=== PATIENT | male | born 1950 | race Caucasian/White ===

== ENCOUNTER 2019-04-03 09:16 | Outpatient (REF) | payer OTHER, SELFPAY ==
[2019-04-03 20:49] LABS: Anion Gap 9.5 mmol/L (3-11); BUN 17 mg/dL (7-18); CO2 26.5 mmol/L (21.0-32.0); CREATININE 0.91 mg/dL (0.70-1.30); Calcium 9.2 mg/dL (8.5-10.1); Chloride 105 mmol/L (98-107); Cholesterol 258 mg/dL (50-200); Glucose 105 mg/dL (70-100); HDL Cholesterol 48 mg/dL (40-60); LDL CHOLESTEROL 191 mg/dL (<100); Potassium 4.2 mmol/L (3.5-5.1); Sodium 141 mmol/L (136-145); Triglyceride 118 mg/dL (30-150)
== END 2019-04-03 09:36 ==
LOC: NCHCN 09:16
PROVIDERS: Visit Provider Internal Medicine
DX: Z00.00 Encounter for general adult medical examination without abnormal findings (principal); E78.5 Hyperlipidemia, unspecified; Z13.1 Encounter for screening for diabetes mellitus
CPT/HCPCS: 80048; 80061; 83721

== ENCOUNTER 2019-08-07 16:48 | Outpatient (REF) | payer OTHER, SELFPAY ==
[2019-08-07 22:16] LABS: Calculated LDL 176 mg/dL; Cholesterol 238 mg/dL (50-200); HDL Cholesterol 44 mg/dL (40-60); Triglyceride 94 mg/dL (30-150)
== END 2019-08-07 17:08 ==
LOC: NCHCN 16:48
PROVIDERS: Visit Provider Internal Medicine
DX: E78.5 Hyperlipidemia, unspecified (principal)
CPT/HCPCS: 80061

== ENCOUNTER 2020-07-12 15:00 | Outpatient (REF) | payer OTHER, SELFPAY ==
[2020-07-12 22:18] LABS: Anion Gap 9.4 mmol/L (3-11); BUN 18 mg/dL (7-18); CO2 27.6 mmol/L (21.0-32.0); CREATININE 0.91 mg/dL (0.70-1.30); Calcium 8.6 mg/dL (8.5-10.1); Calculated LDL 177 mg/dL (<100); Chloride 104 mmol/L (98-107); Cholesterol 243 mg/dL (<200); Glucose 91 mg/dL (74-106); HDL Cholesterol 44 mg/dL (40-60); Potassium 4.1 mmol/L (3.5-5.1); Sodium 141 mmol/L (136-145); Triglyceride 111 mg/dL (<150)
== END 2020-07-12 15:20 ==
LOC: NCHCN 15:00
PROVIDERS: Visit Provider Internal Medicine
DX: Z00.00 Encounter for general adult medical examination without abnormal findings (principal); E78.5 Hyperlipidemia, unspecified
CPT/HCPCS: 80048; 80061

== ENCOUNTER 2021-01-24 12:10 | Outpatient (REF) | payer OTHER, SELFPAY ==
[2021-01-24 13:42] LABS: Calculated LDL 155 mg/dL (<100); Cholesterol 230 mg/dL (<200); HDL Cholesterol 46 mg/dL (40-60); Triglyceride 146 mg/dL (<150)
== END 2021-01-24 12:11 | disposition home or self-care (01) ==
LOC: NCHCN 12:10
PROVIDERS: Visit Provider Internal Medicine
DX: E78.5 Hyperlipidemia, unspecified (principal)
CPT/HCPCS: 80061

== ENCOUNTER 2021-07-05 10:27 | Outpatient (REF) | payer OTHER, SELFPAY ==
[2021-07-05 14:37] LABS: ALT 41 U/L (16-63); AST 31 U/L (15-37); Albumin 3.9 g/dL (3.4-5.0); Alkaline Phosphatase 73 U/L (46-116); Anion Gap 10.5 mmol/L (3-11); BUN 18 mg/dL (7-18); Bilirubin, Total 0.6 mg/dL (0.2-1.0); CO2 25.5 mmol/L (21.0-32.0); CREATININE 0.9 mg/dL (0.70-1.30); Calcium 8.7 mg/dL (8.5-10.1); Calculated LDL 170 mg/dL (<100); Chloride 106 mmol/L (98-107); Cholesterol 232 mg/dL (<200); Glucose 93 mg/dL (74-106); HDL Cholesterol 45 mg/dL (40-60); Potassium 4.3 mmol/L (3.5-5.1); Sodium 142 mmol/L (136-145); Total Protein 6.6 g/dL (6.4-8.2); Triglyceride 86 mg/dL (<150)
== END 2021-07-05 10:28 | disposition home or self-care (01) ==
LOC: NCHCN 10:27
PROVIDERS: Visit Provider Internal Medicine
DX: E78.5 Hyperlipidemia, unspecified (principal); I10 Essential (primary) hypertension; Z12.5 Encounter for screening for malignant neoplasm of prostate
CPT/HCPCS: 80053; 80061; 84153

== ENCOUNTER 2022-01-15 11:03 | Outpatient (REF) | payer OTHER, SELFPAY ==
[2022-01-15 19:14] LABS: Calculated LDL 157 mg/dL (<100); Cholesterol 230 mg/dL (<200); HDL Cholesterol 51 mg/dL (40-60); Triglyceride 110 mg/dL (<150)
== END 2022-01-15 11:04 | disposition home or self-care (01) ==
LOC: NCHCN 11:03
PROVIDERS: Visit Provider Internal Medicine
DX: E78.5 Hyperlipidemia, unspecified (principal)
CPT/HCPCS: 80061

== ENCOUNTER 2023-03-06 16:22 | Outpatient (REF) | payer OTHER, SELFPAY ==
[2023-03-06 15:23] LABS: BUN 13 mg/dL (7-18); CREATININE 1.1 mg/dL (0.70-1.30); Calcium 8.8 mg/dL (8.5-10.1); Calculated LDL 163 mg/dL (<100); Chloride 107 mmol/L (98-107); Cholesterol 231 mg/dL (<200); Estimated GFR 71.32 (mL/min/1.73m2); Glucose 104 mg/dL (74-106); HDL Cholesterol 48 mg/dL (40-60); Potassium 4.3 mmol/L (3.5-5.1); Sodium 142 mmol/L (136-145); Triglyceride 103 mg/dL (<150)
== END 2023-03-06 16:23 | disposition home or self-care (01) ==
LOC: NCHCN 16:22
PROVIDERS: Visit Provider Internal Medicine
DX: Z00.00 Encounter for general adult medical examination without abnormal findings (principal); I10 Essential (primary) hypertension; E78.5 Hyperlipidemia, unspecified
CPT/HCPCS: 80048; 80061

== ENCOUNTER 2023-09-02 14:45 | Outpatient (REF) | payer OTHER, SELFPAY ==
[2023-09-02 16:57] LABS: Calculated LDL 173 mg/dL (<100); Cholesterol 238 mg/dL (<200); HDL Cholesterol 47 mg/dL (40-60); Triglyceride 92 mg/dL (<150)
== END 2023-09-02 14:46 | disposition home or self-care (01) ==
LOC: NCHCN 14:45
PROVIDERS: Visit Provider Internal Medicine
DX: E78.5 Hyperlipidemia, unspecified (principal)
CPT/HCPCS: 80061

== ENCOUNTER 2024-03-02 10:41 | Outpatient (REF) | payer OTHER, SELFPAY ==
[2024-03-02 14:49] LABS: Anion Gap 4.6 mmol/L (3-11); BUN 15 mg/dL (7-18); CO2 30.4 mmol/L (21.0-32.0); Calculated LDL 167 mg/dL (<100); Chloride 107 mmol/L (98-107); Cholesterol 244 mg/dL (<200); Estimated GFR 79.47 (mL/min/1.73m2); Glucose 100 mg/dL (74-106); HDL Cholesterol 56 mg/dL (40-60); Potassium 4.7 mmol/L (3.5-5.1); Sodium 142 mmol/L (136-145); Triglyceride 109 mg/dL (<150)
[2024-03-02 14:52] LABS: Hemoglobin A1C 5.8 % (<5.7)
== END 2024-03-02 10:42 | disposition home or self-care (01) ==
LOC: NCHCN 10:41
PROVIDERS: PCP Internal Medicine; Visit Provider Internal Medicine
DX: E78.5 Hyperlipidemia, unspecified (principal); R73.9 Hyperglycemia, unspecified; R03.0 Elevated blood-pressure reading, without diagnosis of hypertension
CPT/HCPCS: 80048; 80061; 83036

== ENCOUNTER 2024-11-16 18:38 | Outpatient (REF) | payer OTHER, SELFPAY ==
[2024-11-16 21:57] LABS: Hemoglobin A1C 5.6 % (<5.7)
[2024-11-16 22:24] LABS: Calculated LDL 129 mg/dL (<100); Cholesterol 209 mg/dL (<200); Folate 15.3 ng/mL (8.6-20.0); HDL Cholesterol 66 mg/dL (40-60); TSH 0.75 uIU/mL (0.36-3.74); Triglyceride 73 mg/dL (<150); Vitamin B12 414 pg/mL (193-986)
== END 2024-11-16 18:39 | disposition home or self-care (01) ==
LOC: NCHCN 18:38
PROVIDERS: PCP Internal Medicine; Visit Provider Internal Medicine
DX: E78.5 Hyperlipidemia, unspecified (principal); R25.1 Tremor, unspecified; R73.03 Prediabetes
CPT/HCPCS: 80061; 82607; 82746; 83036; 84443

== ENCOUNTER 2025-06-07 18:50 | Outpatient (REF) | payer OTHER, SELFPAY ==
[2025-06-07 14:39] LABS: HCT 47.2 % (40.0-50.0); HGB 15.9 g/dL (13.5-17.5); MCH 30.7 pg (27.0-33.0); MCHC 33.7 % (32.0-36.0); MCV 91 fL (80-95); MPV 8.9 fL (8.0-11.0); Platelet Count 228 10^3/uL (130-400); RBC 5.18 10^6/uL (4.36-5.78); RDW 13.5 % (11.8-14.1); RDW-SD 46.1 fL; WBC 6.37 10^3/uL (4.4-10.8)
[2025-06-07 15:05] LABS: ALT 33 U/L (16-63); AST 27 U/L (15-37); Albumin 3.7 g/dL (3.4-5.0); Alkaline Phosphatase 85 U/L (46-116); Anion Gap 7.4 mmol/L (3-11); BUN 16 mg/dL (7-18); Bilirubin, Total 0.7 mg/dL (0.2-1.0); CO2 26.6 mmol/L (21.0-32.0); Calcium 8.9 mg/dL (8.5-10.1); Calculated LDL 171 mg/dL (<100); Chloride 106 mmol/L (98-107); Cholesterol 235 mg/dL (<200); Estimated GFR 92.87 (mL/min/1.73m2); Glucose 106 mg/dL (74-106); HDL Cholesterol 46 mg/dL (>or=40); Potassium 4.1 mmol/L (3.5-5.1); Sodium 140 mmol/L (136-145); Total Protein 6.9 g/dL (6.4-8.2); Triglyceride 92 mg/dL (<150)
[2025-06-07 15:07] LABS: Hemoglobin A1C 5.7 % (<5.7)
== END 2025-06-07 18:51 | disposition home or self-care (01) ==
LOC: NCHCN 18:50
PROVIDERS: PCP Internal Medicine; Visit Provider Internal Medicine
DX: R73.03 Prediabetes (principal); I10 Essential (primary) hypertension; E78.5 Hyperlipidemia, unspecified
CPT/HCPCS: 80053; 80061; 85027; 83036